=== PATIENT | male | born 1950 | race Caucasian/White ===

== ENCOUNTER → 2017-02-04 | Outpatient (CLI) | payer MEDICARE ==
[~2017-02-04] MED LIST: ARICEPT10 MG PO; CELEXA40 MG PO; DESYREL 50MG50 MG PO; HCTZ 25MG TAB25 MG PO; NORCO 325 MG-101 TAB PO; PRILOSEC 20MG20 MG PO; ROXICODONE 55 MG/TAB PO
== END ==
LOC: COL.RAD 07:06
DX: I70.0 Atherosclerosis of aorta (principal)

== ENCOUNTER 2020-03-09 06:39 | Day surgery (SDC) | payer MEDICARE ==
[2020-03-09] VITALS (7 sets, daily range): BP systolic 117–139; BP diastolic 58–71; PULSE 61–83; TEMP 98.1
[~2020-03-09] VITALS: Ht 182.9 cm; Wt 88.6 kg
[~2020-03-09 06:39] MED LIST changes: +ANORO IH; +DESYREL 100MG100 MG PO; +MOBIC15 MG PO; +OMNICEF 300MG300 MG PO; +PRIL40 PO; +PROSCAR 5MG5 MG PO; +ZANAFLEX CAPSULE4 MG PO
[2020-03-09] MEDS ORDERED: ARICEPT10 MG PO (07:57)
[2020-03-09] MEDS ORDERED: FLEXERIL 1010 MG/TAB PO (07:58)
[2020-03-09] MEDS ORDERED: HCTZ 25MG TAB25 MG PO (07:59)
[2020-03-09] MEDS ORDERED: PROSCAR 5MG5 MG PO (07:59)
[2020-03-09] MEDS ORDERED: CELEXA 20MG20 MG/TAB PO (08:00)
[2020-03-09] MEDS ORDERED: DESYREL 100MG100 MG PO (08:01)
[2020-03-09] MEDS ORDERED: MOBIC15 MG PO (08:02)
[2020-03-09] MEDS ORDERED: PRIL40 PO (08:03)
[2020-03-09] MEDS ORDERED: NORCO 325 MG-101 TAB PO (08:04)
[2020-03-09] MEDS ORDERED: [UNRECOGNIZED DRUG - OTHER] IH (08:07)
[2020-03-09] MEDS ORDERED: TRELEGY ELLIPT1 EACH IH (08:11)
[2020-03-09] MEDS ORDERED: NICODERM C21 MG/PATC TD (08:12)
--- NOTE | 2020-03-09 10:00 | NUR ---
Patient returns to room 1 per cart from PACU accompanied by Marcelina VILLALBA and is awake and alert. Batista catheter draining clear urine with CBI at moderate rate. No blood or clots noted. IV fluids infusing and site is free of redness. Siderails up x2 and call light in reach. Temp 97.3.
--- NOTE | 2020-03-09 10:15 | NUR ---
Resting and sipping on orange juice. Denies pain or nausea. Batista continues to drain yellow urine.
--- NOTE | 2020-03-09 10:30 | NUR ---
Cardenas catheter clamped and 200cc's sterile water infused then cardenas discontinued. Patient has immediate sensation to urinate. Given urinal and assisted across the hallway. Urinates blood tinged urine and has bowel movement. Returns to room. Keeps urinal in place.
--- NOTE | 2020-03-09 10:45 | NUR ---
Eating muffin and drinking orange juice.
--- NOTE | 2020-03-09 11:00 | NUR ---
Resting drinking water and coffee.
--- NOTE | 2020-03-09 12:00 | NUR ---
Voids 100cc's pink tinged urine. States that he is ready to go home. Spouse notified and will be in here in approximately thirty minutes. IV discontinued and patient dresses self.
--- NOTE | 2020-03-09 12:30 | NUR ---
Dismissal instructions given and voices understanding of these.
--- NOTE | 2020-03-09 12:45 | NUR ---
Patient dismissed to home driven by spouse and taken to the front entrance by wheelchair and assisted into vehicle by this RN with instructions in hand.
== END 2020-03-09 12:45 | disposition home or self-care (01) ==
LOC: SDCO 06:39 → EDSTATUS 08:30 → SURG 08:30 → SDCO 12:45
DX: C67.2 Malignant neoplasm of lateral wall of bladder (principal); J44.9 Chronic obstructive pulmonary disease, unspecified; G47.33 Obstructive sleep apnea (adult) (pediatric); K21.9 Gastro-esophageal reflux disease without esophagitis; I10 Essential (primary) hypertension; M51.36 Other intervertebral disc degeneration, lumbar region; N40.1 Benign prostatic hyperplasia with lower urinary tract symptoms; N13.8 Other obstructive and reflux uropathy; G89.29 Other chronic pain; M54.5 Low back pain; F41.9 Anxiety disorder, unspecified; F32.9 Major depressive disorder, single episode, unspecified; F17.210 Nicotine dependence, cigarettes, uncomplicated; N52.9 Male erectile dysfunction, unspecified; Z85.828 Personal history of other malignant neoplasm of skin; Z79.899 Other long term (current) drug therapy; Z88.0 Allergy status to penicillin; Z86.73 Personal history of transient ischemic attack (TIA), and cerebral infarction without residual deficits
CPT/HCPCS: J0690; J2405; J2704; J3010; J7120; Q9967

== ENCOUNTER 2020-10-22 12:58 | Day surgery (SDC) | payer MEDICARE ==
[~2020-10-22] VITALS: Ht 182.9 cm; Wt 84.4 kg
[~2020-10-22 12:58] MED LIST changes: +CELEXA 20MG20 MG/TAB PO; +FLEXERIL 1010 MG/TAB PO; +NICODERM C21 MG/PATC TD; +TRELEGY ELLIPT1 EACH IH; +[UNRECOGNIZED DRUG - OTHER] IH
[2020-10-22] MEDS ORDERED: ZANAFLEX2 MG PO (13:30)
[2020-10-22 13:32] VITALS: BP 137/69; PULSE 81; TEMP 98.3
[2020-10-22] MEDS ORDERED: CELEXA40 MG PO (13:45)
[2020-10-22] MEDS ORDERED: TRELEGY ELLIPT1 EACH IH (13:47)
--- NOTE | 2020-10-22 13:53 | NUR ---
TO RM 7 AT 1307- CALL LIGHT IN REACH
[2020-10-22 15:36] VITALS: BP 104/58; PULSE 66; TEMP 97.6
--- NOTE | 2020-10-22 15:36 | NUR ---
TO RM 7 PER CART FROM OR. ACCOMPANIED BY MARLNO VILLALBA AND SANTHOSH S[place]. PATIENT HAS ORAL AIRWAY IN AND 10L PER MASK. UNRESPONSIVE TO VERBAL OR TACTILE STIMULATION. DR CASPER STATED TO GIVE LEVOQUIN 5O0MG IV. HE STATED HE COULDN'T GET HOLD OF HIS TO TALK TO HER. STATED EVERYTHING WENT WELL AND TO CONTINUE THE FOLLOW UP APPOINTMENTS. NANCY FROM [employer] TALKED TO HIM PRIOR TO SURGERY. HE TOLD HIM HE WOULD HAVE TO USE NEW CONTROLLER WHICH WILL BE SENT HOME WITH HIM TO RUN THE STIMULATOR. DRESSING CLEAN DRY INTACT.
[2020-10-22 15:50] VITALS: BP 110/62; PULSE 61
--- NOTE | 2020-10-22 15:50 | NUR ---
MORE AWAKE AND TALKING TO STAFF A FEW WORDS AT TA TIME. 02 MASK ON AT 10L WITH SATS 99%. DISCONTINUED O2 PATIENT IS WAKING UP.
[2020-10-22 16:05] VITALS: BP 119/63; PULSE 59
--- NOTE | 2020-10-22 16:05 | NUR ---
RECEIVED WATER AND TAKING SIPS. RECEIVED PUTTING AND TAKING A FEW BITES. CALLED AND UPDATED. DENIES PAIN OR DISCOMFORT AT THIS TIME. DR CASPER STATED HE COULD BE DISMISSED WHEN [facility]ITERA MET. IV PATENT AND LEVOQUIN RUNNING.
[2020-10-22 16:20] VITALS: BP 139/62; PULSE 59
--- NOTE | 2020-10-22 16:20 | NUR ---
PATIENT AMBULATED TO BATHROOM WITH STAND BY ASSIST.
--- NOTE | 2020-10-22 16:33 | NUR ---
RECEIVED DISCHARGE INSTRUCTIONS AND VERBALIZED UNDERSTANDING DISCONTINUED IV AND INT- CATHETER INTACT ASSISTED PATIENT DRESSED. DRESSING OVER ABDOMEN STILL CLEAN DRY INTACT.
--- NOTE | 2020-10-22 16:50 | NUR ---
DISCHARGED PER WC BY NURSING STAFF TO PRIVATE CAR IN CARE OF .
== END 2020-10-22 17:02 | disposition home or self-care (01) ==
LOC: SDCO 12:58
DX: Z45.42 Encounter for adjustment and management of neurostimulator (principal); F41.9 Anxiety disorder, unspecified; F32.9 Major depressive disorder, single episode, unspecified; F11.20 Opioid dependence, uncomplicated; M51.36 Other intervertebral disc degeneration, lumbar region; M47.816 Spondylosis without myelopathy or radiculopathy, lumbar region; M54.41 Lumbago with sciatica, right side; M46.1 Sacroiliitis, not elsewhere classified; M54.2 Cervicalgia; M53.82 Other specified dorsopathies, cervical region; I10 Essential (primary) hypertension; J44.9 Chronic obstructive pulmonary disease, unspecified; G47.33 Obstructive sleep apnea (adult) (pediatric); K21.9 Gastro-esophageal reflux disease without esophagitis; G89.29 Other chronic pain; M19.90 Unspecified osteoarthritis, unspecified site; F43.10 Post-traumatic stress disorder, unspecified; Z85.51 Personal history of malignant neoplasm of bladder; Z87.891 Personal history of nicotine dependence; Z85.820 Personal history of malignant melanoma of skin; Z88.0 Allergy status to penicillin; Z79.899 Other long term (current) drug therapy; Z86.73 Personal history of transient ischemic attack (TIA), and cerebral infarction without residual deficits
CPT/HCPCS: J1956; J2704; J7120

== ENCOUNTER → 2021-04-03 | Outpatient (CLI) | payer MEDICARE ==
[~2021-04-03] MED LIST changes: +BREZTRI AEROS10.7 GM IH; +PROVENTIL0.09 MG/A1 IH; +ZANAFLEX2 MG; +ZANAFLEX2 MG PO
== END ==
LOC: COL.RAD 13:21
DX: Z12.2 Encounter for screening for malignant neoplasm of respiratory organs (principal); Z87.891 Personal history of nicotine dependence; R91.8 Other nonspecific abnormal finding of lung field

== ENCOUNTER → 2021-05-17 | Day surgery (SDC) | payer MEDICARE ==
[~2021-05-17] VITALS: Ht 177.8 cm; Wt 79.2 kg
[2021-05-17 07:48] VITALS: BP 119/80; PULSE 97; TEMP 97.7
[2021-05-17 09:00] VITALS: BP 136/70; PULSE 72; TEMP 97.6
--- NOTE | 2021-05-17 09:00 | NUR ---
Pt returned via cart to [facility]. Ambulated with great deal of encouragement to recliner in bay. Pt mumbling things, unable to understand him. in room. Pt reluctant to scoot back in to the recliner and was asked several times to scoot back to be safe. VSS-see flowsheet. Pt requested a coke. Given warm blanket and legs elevated in recliner for comfort. Call light in reach.
[2021-05-17 09:15] VITALS: BP 138/71; PULSE 70
[2021-05-17 09:30] VITALS: BP 134/70; PULSE 72
--- NOTE | 2021-05-17 09:38 | NUR ---
Pts VS remain stable. Tolerated oral intake. Dr Tolentino was in to visit with pt and spouse post procedure. IV removed and pressure dressing applied. Discharge teaching completed, pt and spouse verbalized understanding. Pt very adament that he was seeing cockroaches in the door way. Reassured patient that there were not any and if so we would take care of them. Pt taken via wheelchair to private vehicle for to drive pt home. Pt told "just sit there, I'm going around to the other side." He was indicating for her to "just sit" in the passenger seat and was planning to go around to the drivers side. Instructed patient he could not drive after having sedation and he complied.
== END ==
LOC: SDCO 07:16
DX: K29.30 Chronic superficial gastritis without bleeding (principal); K22.2 Esophageal obstruction; K21.9 Gastro-esophageal reflux disease without esophagitis; I10 Essential (primary) hypertension; J44.9 Chronic obstructive pulmonary disease, unspecified; G47.33 Obstructive sleep apnea (adult) (pediatric); M19.90 Unspecified osteoarthritis, unspecified site; G89.29 Other chronic pain; M54.9 Dorsalgia, unspecified; F32.9 Major depressive disorder, single episode, unspecified; F17.210 Nicotine dependence, cigarettes, uncomplicated; F43.10 Post-traumatic stress disorder, unspecified; F03.90 Unspecified dementia, unspecified severity, without behavioral disturbance, psychotic disturbance, mood disturbance, and anxiety; Z20.822 Contact with and (suspected) exposure to COVID-19; Z85.51 Personal history of malignant neoplasm of bladder; Z79.899 Other long term (current) drug therapy; Z79.891 Long term (current) use of opiate analgesic
CPT/HCPCS: C1726; J2704; J7030

== ENCOUNTER → 2021-06-09 | Outpatient (CLI) | payer MEDICARE ==
[2021-06-09 14:21] LABS: COLLECTION METHOD CLEAN CATCH
[2021-06-09 14:47] LABS: MUCOUS Present /lpf; PH 5 (5-8); URINE APPEARANCE Turbid; URINE BACTERIA Rare /hpf; URINE BILIRUBIN Negative (NEGATIVE); URINE BLOOD Negative (NEGATIVE); URINE COLOR Amber; URINE GLUCOSE Negative (NEGATIVE); URINE KETONE Negative (NEGATIVE); URINE LEUKOCYTE ESTERASE Negative (NEGATIVE); URINE NITRATE Negative (NEGATIVE); URINE PROTEIN(semi-quant) Negative (NEGATIVE); URINE RBC None Seen /hpf; URINE UROBILINOGEN Negative (NEGATIVE)
[2021-06-09 14:49] LABS: AMORPHOUS CRYSTAL Present /uL
== END ==
LOC: ZCOL.LAB 11:24
PROVIDERS: Family Medicine
DX: N39.0 Urinary tract infection, site not specified (principal)

== ENCOUNTER → 2021-07-18 | Outpatient (CLI) | payer MEDICARE | LOC: COL.VAS 07-16 14:15 | DX: J44.9 Chronic obstructive pulmonary disease, unspecified (principal) ==

== ENCOUNTER → 2021-09-17 | Outpatient (CLI) | payer MEDICARE | LOC: COL.RAD 08:15 | DX: R90.82 White matter disease, unspecified (principal); Z86.51 Personal history of combat and operational stress reaction ==

== ENCOUNTER 2021-09-20 12:45 | Emergency (ER) | payer MEDICARE ==
[~2021-09-20] VITALS: Ht 182.9 cm; Wt 75.5 kg
[2021-09-20 13:07] VITALS: TEMP 98
[2021-09-20 13:59] LABS: BASO % 0.7 % (0.0-2.0); EOS # 0.1 K/mm3 (0.0-0.7); EOS % 1.1 % (0.0-4.0); GRAN # 2.7 K/mm3 (1.4-6.5); HEMATOCRIT 38.4 % (42.0-52.0); HEMOGLOBIN 13.6 g/dl (13.5-18.0); LYMPH # 1.3 K/mm3 (1.2-3.4); LYMPH % 27.9 % (20.0-51.0); MEAN CELL VOLUME 91 fl (80.0-100.0); MEAN CORPUSCULAR HEMOGLOBIN 32 pg (27-31); MEAN CORPUSCULAR HGB CONC 35 g/dl (33.0-37.0); MEAN PLATELET VOLUME 9.6 fl (7.4-10.4); MONO # 0.5 K/mm3 (0.1-0.6); MONO % 10.1 % (1.7-9.3); PLATELET COUNT 134 K/mm3 (130-400); RED BLOOD COUNT 4.23 M/mm3 (4.20-5.60); REDCELL DISTRIBUTION WIDTH-CV 12.6 % (11.5-14.5)
[2021-09-20 14:02] LABS: ALBUMIN 4.2 gm/dL (3.4-4.8); BILIRUBIN,TOTAL 0.7 mg/dL (0.2-1.2); CALCIUM 9.1 mg/dL (8.4-10.2); CREATININE, serum 1.55 mg/dL (0.72-1.25); TOTAL PROTEIN 7.2 gm/dL (6.2-8.1)
[2021-09-20 14:12] LABS: PH 5 (5-8); SQUAMOUS EPITHELIAL 0-2 /hpf (0-10); URINE APPEARANCE Clear (CLEAR/HAZY); URINE BACTERIA Rare /hpf (NONE SEEN); URINE BILIRUBIN Negative (NEGATIVE); URINE BLOOD Negative (NEGATIVE); URINE COLOR Yellow (YELLOW); URINE GLUCOSE Negative (NEGATIVE); URINE KETONE Trace (NEGATIVE); URINE LEUKOCYTE ESTERASE Negative (NEGATIVE); URINE NITRATE Negative (NEGATIVE); URINE PROTEIN(semi-quant) Negative (NEGATIVE); URINE RBC 0-2 /hpf (0-2); URINE UROBILINOGEN Negative (NEGATIVE); URINE WBC 0-2 /hpf (0-2)
[2021-09-20 15:55] VITALS: BP 120/61; PULSE 80
[2021-09-20 21:27] LABS: COLLECTION METHOD CLEAN CATCH
== END 2021-09-20 16:00 | disposition home or self-care (01) ==
LOC: COL.ER 12:45
PROVIDERS: Personal Emergency Response Attendant
DX: F03.90 Unspecified dementia, unspecified severity, without behavioral disturbance, psychotic disturbance, mood disturbance, and anxiety (principal); N28.9 Disorder of kidney and ureter, unspecified; J44.9 Chronic obstructive pulmonary disease, unspecified; G89.29 Other chronic pain; M54.9 Dorsalgia, unspecified; F17.200 Nicotine dependence, unspecified, uncomplicated; Z79.51 Long term (current) use of inhaled steroids; Z79.899 Other long term (current) drug therapy
CPT/HCPCS: J1630; J7030

== ENCOUNTER 2022-01-11 12:23 | Inpatient (IN) | payer MEDICARE ==
[~2022-01-11] VITALS: Ht 182.9 cm; Wt 68.2 kg
[~2022-01-11 12:23] MED LIST changes: -ZANAFLEX2 MG
[2022-01-11 13:37] LABS: BASO # 0.1 K/mm3 (0.0-0.2); BASO % 0.9 % (0.0-2.0); EOS # 0.2 K/mm3 (0.0-0.7); EOS % 2.9 % (0.0-4.0); GRAN # 2.9 K/mm3 (1.4-6.5); GRAN % 49.9 % (42.2-75.2); HEMOGLOBIN 13.3 g/dl (13.5-18.0); LYMPH # 2.2 K/mm3 (1.2-3.4); LYMPH % 38.4 % (20.0-51.0); MEAN CELL VOLUME 90 fl (80.0-100.0); MEAN CORPUSCULAR HEMOGLOBIN 33 pg (27-31); MEAN CORPUSCULAR HGB CONC 36 g/dl (33.0-37.0); MEAN PLATELET VOLUME 9.1 fl (7.4-10.4); MONO # 0.5 K/mm3 (0.1-0.6); MONO % 7.7 % (1.7-9.3); PLATELET COUNT 146 K/mm3 (130-400); RED BLOOD COUNT 4.09 M/mm3 (4.20-5.60); REDCELL DISTRIBUTION WIDTH-CV 12.7 % (11.5-14.5)
[2022-01-11 13:39] LABS: HEMATOCRIT 36.6 % (42.0-52.0)
[2022-01-11 13:49] LABS: ALANINE AMINOTRANSFERASE < 6 U/L (0-55); ALBUMIN 4.1 gm/dL (3.4-4.8); ALKALINE PHOSPHATASE 59 U/L (40-150); ANION GAP 9 mmol/L (7-16); AST,SGOT 9 U/L (5-34); BILIRUBIN,TOTAL 0.7 mg/dL (0.2-1.2); BLOOD UREA NITROGEN 21 mg/dL (8-26); CALCIUM 9.1 mg/dL (8.4-10.2); CARBON DIOXIDE 26 mmol/L (23-31); CHLORIDE 103 mmol/L (98-107); CREATININE, serum 1.53 mg/dL (0.72-1.25); GLUCOSE 111 mg/dL (70-99); LIPASE 50 U/L (8-78); POTASSIUM 3.9 mmol/L (3.5-4.5); SODIUM 138 mmol/L (136-145); TOTAL PROTEIN 6.5 gm/dL (6.2-8.1)
[2022-01-11 14:09] LABS: TSH w REFLEX 1.697 uIU/mL (0.350-4.940)
[2022-01-11 14:10] LABS: TROPONIN-I < 0.010 ng/mL (0.00-0.033)
[2022-01-11 14:34] LABS: COLLECTION METHOD CATHETER
[2022-01-11 14:41] LABS: PH 5 (5-8); SQUAMOUS EPITHELIAL 0-2 /hpf (0-10); URINE APPEARANCE Clear (CLEAR/HAZY); URINE BACTERIA None Seen /hpf (NONE SEEN); URINE BILIRUBIN Negative (NEGATIVE); URINE BLOOD Negative (NEGATIVE); URINE COLOR Yellow (YELLOW); URINE GLUCOSE Negative (NEGATIVE); URINE KETONE Negative (NEGATIVE); URINE LEUKOCYTE ESTERASE Negative (NEGATIVE); URINE NITRATE Negative (NEGATIVE); URINE PROTEIN(semi-quant) Negative (NEGATIVE); URINE RBC None Seen /hpf (0-2); URINE UROBILINOGEN Negative (NEGATIVE)
[2022-01-11 15:28] VITALS: BP 128/64; PULSE 60; TEMP 97.8
[2022-01-11] MEDS ORDERED: ROXICODONE 55 MG/TAB PO (16:15)
[2022-01-11] MEDS ORDERED: FENTANYL 25 MCG TD (16:15)
[2022-01-11] MEDS ORDERED: PRIL40 PO (16:15)
[2022-01-11] MEDS ORDERED: CYMBALTA 30MG30 MG PO (16:15)
[2022-01-11] MEDS ORDERED: NAMENDA 10MG TA10 MG PO (17:21)
[2022-01-11 20:35] VITALS: BP 126/68; PULSE 66; TEMP 97.9
[2022-01-11 23:26] VITALS: BP 124/63; PULSE 73; TEMP 97.9
[2022-01-12 03:45] VITALS: BP 122/49; PULSE 69; TEMP 97.8
[2022-01-12 06:24] LABS: BASO # 0.1 K/mm3 (0.0-0.2); BASO % 0.7 % (0.0-2.0); EOS # 0.1 K/mm3 (0.0-0.7); EOS % 1.8 % (0.0-4.0); GRAN # 2.8 K/mm3 (1.4-6.5); GRAN % 41.1 % (42.2-75.2); HEMOGLOBIN 12.1 g/dl (13.5-18.0); LYMPH # 3.3 K/mm3 (1.2-3.4); LYMPH % 48.9 % (20.0-51.0); MEAN CELL VOLUME 91 fl (80.0-100.0); MEAN CORPUSCULAR HEMOGLOBIN 32 pg (27-31); MEAN CORPUSCULAR HGB CONC 35 g/dl (33.0-37.0); MEAN PLATELET VOLUME 9.3 fl (7.4-10.4); MONO # 0.5 K/mm3 (0.1-0.6); MONO % 7.2 % (1.7-9.3); PLATELET COUNT 134 K/mm3 (130-400); RED BLOOD COUNT 3.74 M/mm3 (4.20-5.60); REDCELL DISTRIBUTION WIDTH-CV 12.6 % (11.5-14.5)
[2022-01-12 06:44] LABS: ALBUMIN 3.8 gm/dL (3.4-4.8); CALCIUM 8.7 mg/dL (8.4-10.2); CREATININE, serum 1.23 mg/dL (0.72-1.25); MAGNESIUM 2.1 mg/dL (1.6-2.6); PHOSPHOROUS 3.8 mg/dL (2.3-4.7); POTASSIUM 3.6 mmol/L (3.5-4.5)
[2022-01-12 07:09] LABS: HEMATOCRIT 34.2 % (42.0-52.0)
[2022-01-12 08:08] VITALS: BP 111/61; PULSE 76; TEMP 98.2
[2022-01-12 12:21] VITALS: BP 124/64; PULSE 78; TEMP 97.3
[2022-01-12 17:03] VITALS: BP 129/77; PULSE 100; TEMP 97.8
[2022-01-12 20:42] VITALS: BP 124/56; PULSE 63; TEMP 97.7
[2022-01-13] VITALS: BP 136/61; PULSE 64; TEMP 97.5
[2022-01-13 03:40] VITALS: BP 115/54; PULSE 59; TEMP 97.5
[2022-01-13 06:59] LABS: BASO % 0.5 % (0.0-2.0); EOS # 0.2 K/mm3 (0.0-0.7); EOS % 2.5 % (0.0-4.0); GRAN # 2.2 K/mm3 (1.4-6.5); GRAN % 35.2 % (42.2-75.2); HEMOGLOBIN 11.3 g/dl (13.5-18.0); LYMPH # 3.5 K/mm3 (1.2-3.4); LYMPH % 54.8 % (20.0-51.0); MEAN CELL VOLUME 92 fl (80.0-100.0); MEAN CORPUSCULAR HEMOGLOBIN 32 pg (27-31); MEAN CORPUSCULAR HGB CONC 35 g/dl (33.0-37.0); MEAN PLATELET VOLUME 9.4 fl (7.4-10.4); MONO # 0.4 K/mm3 (0.1-0.6); MONO % 6.8 % (1.7-9.3); PLATELET COUNT 127 K/mm3 (130-400); RED BLOOD COUNT 3.56 M/mm3 (4.20-5.60); REDCELL DISTRIBUTION WIDTH-CV 12.5 % (11.5-14.5)
[2022-01-13 07:00] LABS: HEMATOCRIT 32.6 % (42.0-52.0)
[2022-01-13 07:16] LABS: ALBUMIN 3.6 gm/dL (3.4-4.8); CALCIUM 8.7 mg/dL (8.4-10.2); CREATININE, serum 1.3 mg/dL (0.72-1.25); MAGNESIUM 2.1 mg/dL (1.6-2.6); PHOSPHOROUS 3.3 mg/dL (2.3-4.7); POTASSIUM 3.3 mmol/L (3.5-4.5)
[2022-01-13 07:44] VITALS: BP 117/57; PULSE 62; TEMP 97.4
[2022-01-13 11:58] VITALS: BP 111/60; PULSE 69; TEMP 97.5
[2022-01-13 15:34] VITALS: BP 107/49; PULSE 68; TEMP 97.2
[2022-01-13 20:27] VITALS: BP 139/75; PULSE 66; TEMP 97.6
[2022-01-14 00:24] VITALS: BP 129/65; PULSE 58; TEMP 97.4
[2022-01-14 04:20] VITALS: BP 146/61; PULSE 53; TEMP 97.4
[2022-01-14 06:01] LABS: BASO # 0.1 K/mm3 (0.0-0.2); BASO % 0.8 % (0.0-2.0); EOS # 0.2 K/mm3 (0.0-0.7); EOS % 2.5 % (0.0-4.0); GRAN # 2.2 K/mm3 (1.4-6.5); HEMOGLOBIN 11.6 g/dl (13.5-18.0); LYMPH # 3.5 K/mm3 (1.2-3.4); LYMPH % 55.3 % (20.0-51.0); MEAN CELL VOLUME 89 fl (80.0-100.0); MEAN CORPUSCULAR HEMOGLOBIN 32 pg (27-31); MEAN CORPUSCULAR HGB CONC 36 g/dl (33.0-37.0); MEAN PLATELET VOLUME 9.6 fl (7.4-10.4); MONO # 0.5 K/mm3 (0.1-0.6); MONO % 7.1 % (1.7-9.3); PLATELET COUNT 131 K/mm3 (130-400); REDCELL DISTRIBUTION WIDTH-CV 12.5 % (11.5-14.5)
[2022-01-14 06:13] LABS: HEMATOCRIT 31.9 % (42.0-52.0)
[2022-01-14 06:20] LABS: ALBUMIN 3.6 gm/dL (3.4-4.8); CALCIUM 8.7 mg/dL (8.4-10.2); CREATININE, serum 1.16 mg/dL (0.72-1.25); MAGNESIUM 2.2 mg/dL (1.6-2.6); PHOSPHOROUS 3.8 mg/dL (2.3-4.7); POTASSIUM 3.4 mmol/L (3.5-4.5)
[2022-01-14 08:03] VITALS: BP 118/54; PULSE 74; TEMP 97.1
[2022-01-14 12:23] VITALS: BP 113/58; PULSE 64; TEMP 97.5
[2022-01-14 15:41] VITALS: BP 112/52; PULSE 69; TEMP 97.5
[2022-01-14 20:00] VITALS: BP 122/56; PULSE 72; TEMP 97.8
[2022-01-15 00:24] VITALS: BP 116/62; PULSE 63; TEMP 97.4
[2022-01-15 04:40] VITALS: BP 117/76; PULSE 54; TEMP 97.5
[2022-01-15 06:40] LABS: BASO % 0.7 % (0.0-2.0); EOS # 0.1 K/mm3 (0.0-0.7); EOS % 2.5 % (0.0-4.0); GRAN % 35.6 % (42.2-75.2); HEMOGLOBIN 11.6 g/dl (13.5-18.0); LYMPH # 3.2 K/mm3 (1.2-3.4); LYMPH % 55.5 % (20.0-51.0); MEAN CELL VOLUME 92 fl (80.0-100.0); MEAN CORPUSCULAR HEMOGLOBIN 32 pg (27-31); MEAN CORPUSCULAR HGB CONC 35 g/dl (33.0-37.0); MEAN PLATELET VOLUME 9.1 fl (7.4-10.4); MONO # 0.3 K/mm3 (0.1-0.6); MONO % 5.5 % (1.7-9.3); PLATELET COUNT 128 K/mm3 (130-400); RED BLOOD COUNT 3.63 M/mm3 (4.20-5.60); REDCELL DISTRIBUTION WIDTH-CV 12.7 % (11.5-14.5)
[2022-01-15 06:42] LABS: HEMATOCRIT 33.4 % (42.0-52.0)
[2022-01-15 07:16] LABS: ALBUMIN 3.6 gm/dL (3.4-4.8); CALCIUM 8.9 mg/dL (8.4-10.2); CREATININE, serum 1.22 mg/dL (0.72-1.25); MAGNESIUM 2.1 mg/dL (1.6-2.6); PHOSPHOROUS 3.8 mg/dL (2.3-4.7)
[2022-01-15 07:49] VITALS: BP 132/60; PULSE 60; TEMP 97.4
[2022-01-15 12:12] VITALS: BP 119/61; PULSE 65; TEMP 97.6
[2022-01-15 15:38] VITALS: BP 103/65; PULSE 68; TEMP 97.4
[2022-01-15 19:35] VITALS: BP 124/55; PULSE 98; TEMP 97.7
[2022-01-16] VITALS (7 sets, daily range): BP systolic 111–141; BP diastolic 53–70; PULSE 61–82; TEMP 97.5–98.4
[2022-01-16 10:00] LABS: BASO # 0.1 K/mm3 (0.0-0.2); EOS # 0.1 K/mm3 (0.0-0.7); EOS % 2.5 % (0.0-4.0); GRAN # 2.3 K/mm3 (1.4-6.5); GRAN % 48.3 % (42.2-75.2); HEMOGLOBIN 11.8 g/dl (13.5-18.0); LYMPH # 1.9 K/mm3 (1.2-3.4); LYMPH % 40.7 % (20.0-51.0); MEAN CELL VOLUME 90 fl (80.0-100.0); MEAN CORPUSCULAR HEMOGLOBIN 32 pg (27-31); MEAN CORPUSCULAR HGB CONC 35 g/dl (33.0-37.0); MEAN PLATELET VOLUME 9.1 fl (7.4-10.4); MONO # 0.4 K/mm3 (0.1-0.6); MONO % 7.3 % (1.7-9.3); PLATELET COUNT 136 K/mm3 (130-400); RED BLOOD COUNT 3.73 M/mm3 (4.20-5.60); REDCELL DISTRIBUTION WIDTH-CV 12.6 % (11.5-14.5)
[2022-01-16 10:01] LABS: HEMATOCRIT 33.7 % (42.0-52.0)
[2022-01-16 10:18] LABS: ALBUMIN 3.6 gm/dL (3.4-4.8); CALCIUM 8.9 mg/dL (8.4-10.2); CREATININE, serum 1.15 mg/dL (0.72-1.25); MAGNESIUM 2.1 mg/dL (1.6-2.6); PHOSPHOROUS 3.6 mg/dL (2.3-4.7); POTASSIUM 3.9 mmol/L (3.5-4.5)
[2022-01-17] VITALS (7 sets, daily range): BP systolic 103–121; BP diastolic 62–86; PULSE 54–79; TEMP 97.3–98.1
[2022-01-17 09:50] LABS: BASO % 0.7 % (0.0-2.0); EOS # 0.1 K/mm3 (0.0-0.7); EOS % 2.2 % (0.0-4.0); GRAN # 2.8 K/mm3 (1.4-6.5); GRAN % 51.5 % (42.2-75.2); HEMOGLOBIN 11.8 g/dl (13.5-18.0); LYMPH % 37.9 % (20.0-51.0); MEAN CELL VOLUME 91 fl (80.0-100.0); MEAN CORPUSCULAR HEMOGLOBIN 32 pg (27-31); MEAN CORPUSCULAR HGB CONC 35 g/dl (33.0-37.0); MEAN PLATELET VOLUME 9.3 fl (7.4-10.4); MONO # 0.4 K/mm3 (0.1-0.6); MONO % 7.3 % (1.7-9.3); PLATELET COUNT 145 K/mm3 (130-400); RED BLOOD COUNT 3.71 M/mm3 (4.20-5.60); REDCELL DISTRIBUTION WIDTH-CV 12.7 % (11.5-14.5)
[2022-01-17 09:54] LABS: HEMATOCRIT 33.7 % (42.0-52.0)
[2022-01-17 10:04] LABS: CREATININE, serum 1.21 mg/dL (0.72-1.25); POTASSIUM 3.9 mmol/L (3.5-4.5)
[2022-01-18 03:52] VITALS: BP 136/55; PULSE 87; TEMP 97.5
[2022-01-18 07:49] VITALS: BP 136/61; PULSE 59; TEMP 97.5
[2022-01-18 11:29] VITALS: BP 127/64; PULSE 73; TEMP 97.5
[2022-01-18 15:57] VITALS: BP 116/59; PULSE 77; TEMP 97.7
[2022-01-18 19:30] VITALS: BP 97/67; PULSE 72; TEMP 98
[2022-01-18 23:33] VITALS: BP 106/51; PULSE 70; TEMP 97.4
[2022-01-19 03:21] VITALS: BP 118/54; PULSE 65; TEMP 97.9
[2022-01-19 06:41] LABS: HEMOGLOBIN 11.1 g/dl (13.5-18.0); MEAN CELL VOLUME 90 fl (80.0-100.0); MEAN CORPUSCULAR HEMOGLOBIN 32 pg (27-31); MEAN CORPUSCULAR HGB CONC 36 g/dl (33.0-37.0); MEAN PLATELET VOLUME 9.5 fl (7.4-10.4); PLATELET COUNT 137 K/mm3 (130-400); RED BLOOD COUNT 3.45 M/mm3 (4.20-5.60); REDCELL DISTRIBUTION WIDTH-CV 12.6 % (11.5-14.5)
[2022-01-19 06:42] LABS: HEMATOCRIT 31.2 % (42.0-52.0)
[2022-01-19 07:08] LABS: CALCIUM 8.5 mg/dL (8.4-10.2); CREATININE, serum 1.09 mg/dL (0.72-1.25); POTASSIUM 3.9 mmol/L (3.5-4.5)
[2022-01-19 07:49] VITALS: BP 115/68; PULSE 59; TEMP 97.4
[2022-01-19 12:28] VITALS: BP 107/54; BP 142/107; PULSE 70; TEMP 97.4
[2022-01-19 15:23] VITALS: BP 109/69; PULSE 80; TEMP 97.5
[2022-01-19 20:00] VITALS: BP 115/57; PULSE 79; TEMP 97.9
[2022-01-19 23:22] VITALS: BP 117/61; PULSE 78; TEMP 98.1
[2022-01-20 04:14] VITALS: BP 115/65; BP 142/59; PULSE 64; PULSE 95; TEMP 97.6; TEMP 98.1
[2022-01-20 07:57] VITALS: BP 121/51; PULSE 59; TEMP 97.6
[2022-01-20 08:25] LABS: MEAN CELL VOLUME 90 fl (80.0-100.0); MEAN CORPUSCULAR HEMOGLOBIN 32 pg (27-31); MEAN CORPUSCULAR HGB CONC 35 g/dl (33.0-37.0); MEAN PLATELET VOLUME 9.2 fl (7.4-10.4); PLATELET COUNT 148 K/mm3 (130-400); RED BLOOD COUNT 3.76 M/mm3 (4.20-5.60); REDCELL DISTRIBUTION WIDTH-CV 12.7 % (11.5-14.5)
[2022-01-20 08:38] LABS: CALCIUM 8.9 mg/dL (8.4-10.2); CREATININE, serum 1.18 mg/dL (0.72-1.25); POTASSIUM 4.2 mmol/L (3.5-4.5)
[2022-01-20 11:29] VITALS: BP 113/53; PULSE 80; TEMP 97.5
[2022-01-20 15:42] VITALS: BP 91/56; PULSE 71; TEMP 97.8
[2022-01-20 19:34] VITALS: BP 123/51; PULSE 68; TEMP 97.7
[2022-01-20 22:58] VITALS: BP 141/62; PULSE 66; TEMP 97.9
[2022-01-21 03:51] VITALS: BP 132/47; PULSE 62; TEMP 97.9
[2022-01-21 07:26] VITALS: BP 103/61; PULSE 63; TEMP 98.7
[2022-01-21 11:10] VITALS: BP 107/71; PULSE 76; TEMP 97.5
[2022-01-21 15:55] VITALS: BP 114/67; PULSE 78; TEMP 99.1
[2022-01-21 23:48] VITALS: BP 92/56; PULSE 67; TEMP 97.9
[2022-01-22 04:46] VITALS: BP 113/49; PULSE 72; TEMP 97.7
[2022-01-22 07:30] VITALS: BP 113/44; PULSE 63; TEMP 97.6
[2022-01-22 11:19] VITALS: BP 120/57; PULSE 75; TEMP 97.6
[2022-01-22 15:49] VITALS: BP 113/56; PULSE 73; TEMP 97.5
[2022-01-22 20:36] VITALS: BP 106/76; PULSE 75; TEMP 97.9
[2022-01-23 00:08] VITALS: BP 104/56; PULSE 83; TEMP 97.8
[2022-01-23 04:58] VITALS: BP 104/46; PULSE 72; TEMP 98
[2022-01-23] MEDS ORDERED: INCRUSE EL62.5 MCG/A IH (08:56)
[2022-01-23] MEDS ORDERED: ARICEPT10 MG PO (08:56)
[2022-01-23] MEDS ORDERED: FLEXERIL 1010 MG/TAB PO (08:56)
[2022-01-23] MEDS ORDERED: FENTANYL 25 MCG TD (08:58)
[2022-01-23] MEDS ORDERED: NICODERM C21 MG/PATC TD (08:58)
[2022-01-23] MEDS ORDERED: CYMBALTA 30MG30 MG PO (08:59)
[2022-01-23] MEDS ORDERED: DESYREL DIVIDO150 M1 PO (08:59)
[2022-01-23] MEDS ORDERED: NAMENDA 10MG TA10 MG PO (08:59)
[2022-01-23] MEDS ORDERED: PULMICORT90 MCG/Act IH (09:03)
[2022-01-23] MEDS ORDERED: PROSCAR 5MG5 MG PO (09:04)
[2022-01-23] MEDS ORDERED: PRIL40 PO (09:04)
[2022-01-23] MEDS ORDERED: PROAIR HFA0.09 MG/AC IH (09:05)
[2022-01-23 11:51] VITALS: BP 111/54; PULSE 77; TEMP 98.2
== END 2022-01-23 12:29 | disposition home or self-care (01) | DRG 57 ==
LOC: COL.ER 12:23 → MEDICAL 14:22
PROVIDERS: Emergency Medicine; Family Medicine; Physician Assistant; ADMIT Internal Medicine
DX: G30.9 Alzheimer's disease, unspecified (principal); G93.40 Encephalopathy, unspecified; N17.9 Acute kidney failure, unspecified; E44.0 Moderate protein-calorie malnutrition; F02.80 Dementia in other diseases classified elsewhere, unspecified severity, without behavioral disturbance, psychotic disturbance, mood disturbance, and anxiety; T50.915A Adverse effect of multiple unspecified drugs, medicaments and biological substances, initial encounter; J44.9 Chronic obstructive pulmonary disease, unspecified; S41.112A Laceration without foreign body of left upper arm, initial encounter; I10 Essential (primary) hypertension; E87.6 Hypokalemia; D51.9 Vitamin B12 deficiency anemia, unspecified; G89.29 Other chronic pain; M54.9 Dorsalgia, unspecified; F32.A Depression, unspecified; F19.10 Other psychoactive substance abuse, uncomplicated; R63.4 Abnormal weight loss; Z68.20 Body mass index [BMI] 20.0-20.9, adult; Z20.822 Contact with and (suspected) exposure to COVID-19; W18.30XA Fall on same level, unspecified, initial encounter; Y92.009 Unspecified place in unspecified non-institutional (private) residence as the place of occurrence of the external cause; Z79.891 Long term (current) use of opiate analgesic; Z88.0 Allergy status to penicillin; Z91.81 History of falling
CPT/HCPCS: 99223-AI; 99231-AI; 99232-AI; 99233-AI; 99239; J1644; J3010; J3420; J7030